=== PATIENT | male | born 1985 | race Two or more races ===

== ENCOUNTER 2024-08-16 01:45 | Emergency (ER) | payer OTHER ==
[~2024-08-16] VITALS: Ht 177.8 cm; Wt 105.0 kg
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
[2024-08-16 03:15] VITALS: BP 148/101; PULSE 115; RESP 22; TEMP 99.8; O2SAT 96
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
[2024-08-16] MEDS ORDERED: AUG875T PO (04:37)
[2024-08-16] MEDS ORDERED: METH4PAK PO (04:37)
== END 2024-08-16 04:38 | disposition left against medical advice (07) ==
LOC: ER 01:45 → EDBD 01:45 → ER 04:38
DX: S02.32XA Fracture of orbital floor, left side, initial encounter for closed fracture (principal); S02.40FA Zygomatic fracture, left side, initial encounter for closed fracture; Z79.899 Other long term (current) drug therapy; Y04.0XXA Assault by unarmed brawl or fight, initial encounter; Y93.89 Activity, other specified; Y92.89 Other specified places as the place of occurrence of the external cause; Y99.8 Other external cause status
CPT/HCPCS: 70450; 70486; 72125